=== PATIENT | male | born 1995 | race Caucasian/White ===

== ENCOUNTER 2016-06-25 07:54 | Day surgery (SDC) | payer OTHER ==
[~2016-06-25 07:54] MED LIST: ACETAMINOPHEN 1,000 MG/100 ML 100 ML IV ONE; CELECOXIB 100 MG CAPSULE PO ONE
[2016-06-25] MEDS ORDERED: VANCOMYCIN INJ 1 GM in SODIUM CHLORIDE 0.9% 250 ML IV ONE (08:00)
[2016-06-25] MEDS ORDERED: LACTATED RINGERS 1,000 ML IV ONE ×2 (08:36→11:16)
[2016-06-25] MEDS ORDERED: BUPIVACAINE 0.5% PF 30 ML VIAL SUBQ ONE ×2 (10:27→11:33)
[2016-06-25] MEDS ORDERED: LIDOCAINE-MPF 2% 5 ML VIAL IM ONE (10:49)
[2016-06-25] MEDS ORDERED: ROPIVACAINE 0.5% PF 20 ML AMPULE EP ONE (10:49)
[2016-06-25] MEDS ORDERED: MIDAZOLAM 2 MG/2 ML VIAL IVP ONE (10:49)
[2016-06-25] MEDS ORDERED: PROPOFOL 200 MG/20 ML VIAL IVP ONE (10:49)
[2016-06-25] MEDS ORDERED: fentaNYL 100 MCG/2 ML VIAL IVP ONE (10:49)
[2016-06-25] MEDS ORDERED: ONDANSETRON 4 MG/2 ML VIAL ONE (11:50)
[2016-06-25] MEDS ORDERED: oxyCOD/ACETAMIN 5 MG/325 MG TABLET PO ONE (13:23)
== END 2016-06-25 07:55 | disposition home or self-care (01) ==
PROC: 0KNT0ZZ Release Left Lower Leg Muscle, Open Approach (ICD-10-PCS; principal; 2016-06-25 09:00)
DX: M79.A21 Nontraumatic compartment syndrome of right lower extremity (principal); F17.210 Nicotine dependence, cigarettes, uncomplicated; G47.30 Sleep apnea, unspecified
CPT/HCPCS: 27602; 87081; 87640; A9270; J0131; J3370; J7120